=== PATIENT | female | born 1980 | race Caucasian/White ===

== ENCOUNTER 2024-11-06 12:34 | Emergency (ER) | payer OTHER, SELFPAY ==
[2024-11-06 12:39] VITALS: BP 165/89
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
[2024-11-06 16:22] VITALS: BP 160/80
== END 2024-11-06 16:22 | disposition home or self-care (01) ==
LOC: EMR 12:34
PROVIDERS: EMERGENCY PHYSICIAN Student in an Organized Health Care Education/Training Program; FAMILY PHYSICIAN Family Medicine
DX: S82.422A Displaced transverse fracture of shaft of left fibula, initial encounter for closed fracture (principal); V86.92XA Unspecified occupant of snowmobile injured in nontraffic accident, initial encounter; Z79.01 Long term (current) use of anticoagulants; Z87.81 Personal history of (healed) traumatic fracture
CPT/HCPCS: 99284; 73590; 93971